=== PATIENT | female | born 1965 | race Two or more races ===

== ENCOUNTER 2017-03-05 12:48 | Emergency (ER) | payer MEDICAID ==
[~2017-03-05] VITALS: Ht 167.6 cm; Wt 81.2 kg
[2017-03-05 13:23] VITALS: BP 148/98
[2017-03-05] MEDS ORDERED: AUGMENTIN 875-1 EAC1 ORAL (13:49)
--- NOTE | 2017-03-05 13:50 | Emergency Room Report ---
History of Present Illness General Chief Complaint: Edema Source: Patient Present Illness HPI 51 y/o female c/o possible mass in left submandibilar region. States she noticed it this morning at 3am. Denies any pain and states its not bothering her but noticed it this morning and that it is large. States she had googled it and was worried its cancer. Denies any URI sxs, dental sxs, neck pain, taste changes, sinus congestion, f/c/n/v/d, abd pain, sore throat, or pain. States she is only here to figure out what this mass was. Allergies: Coded Allergies: No Known Allergies (Unverified , 03/05/17) Patient History Past Medical History: see triage record Past Surgical History: none Pertinent Family History: none Reviewed Nursing Documentation: PMH: Agreed, PSxH: Agreed Nursing Documentation-PMH Past Medical History: No Stated History Review of Systems All Other Systems: negative except mentioned in HPI Physical Exam Vital Signs Date Time Temp Pulse Resp B/P Pulse Ox O2 Delivery O2 Flow Rate FiO2 03/05/17 13:08 99.0 91 18 148/98 95 Room Air Sp02 EP Interpretation: reviewed, normal General Appearance: no apparent distress, alert, GCS 15, non-toxic Head: normocephalic, atraumatic Eyes: bilateral eye PERRL, bilateral eye normal inspection ENT: hearing grossly normal, normal pharynx, no angioedema, normal voice, uvula midline, other - 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 Left TM red and bulging Neck: full range of motion, supple/symm/no masses Respiratory: chest non-tender, lungs clear, normal breath sounds, speaking full sentences Cardiovascular #1: regular rate, rhythm, no edema Musculoskeletal: gait/station normal Neurologic: alert, oriented x3, responsive, motor strength/tone normal, sensory intact, speech normal Psychiatric: judgement/insight normal, memory normal, mood/affect normal, no suicidal/homicidal ideation Skin: normal color, no rash, warm/dry, well hydrated Lymphatic: no adenopathy Medical Decision Making PA Attestation Dr. Rudd is my supervising physician with whom patient management has been discussed with. Diagnostic Impression: Primary Impression: Lymph node enlargement Additional Impression: Left otitis media Qualified Codes: H65.112 - Acute and subacute allergic otitis media (mucoid) ( sanguinous) (serous), left ear ER Course Pt. presents to the ED c/o mass Ddx considered but are not limited to abscess, METAL FLOORING INSTALLER, infected salivary gland, URI , tumor Vital signs: are WNL, pt. 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 DISCHARGE: At this time pt. is stable for d/c to home. Will provide printed patient care instructions, and any necessary prescriptions. Care plan and follow up instructions have been discussed with the patient prior to discharge. Last Vital Signs Date Time Temp Pulse Resp B/P Pulse Ox O2 Delivery O2 Flow Rate FiO2 03/05/17 13:23 99.0 91 18 148/98 95 Room Air Status: unchanged Disposition: HOME, SELF-CARE Condition: Stable Scripts Amoxicillin/Potassium Clav 875-125* (AUGMENTIN 875-125 TABLET*) 1 Each Tablet 1 TAB ORAL TWICE A DAY, #20 TAB Prov: SYED PEREZ 03/05/17 Patient Instructions: Lymphadenopathy, Otitis Media, Adult Additional Instructions: Take medication as directed. If sxs worsen or don't improve, please return sooner. Go to the ER if you develop SOB, CP, Rash, photophobia, neck pain, throat swelling occur, go to the ER immediately. SYED PEREZ Mar 05, 2017 13:50
[2017-03-05 14:06] VITALS: BP 148/98
== END 2017-03-05 14:06 | disposition home or self-care (01) ==
LOC: EMR 13:10
DX: R59.9 Enlarged lymph nodes, unspecified (principal); H65.112 Acute and subacute allergic otitis media (mucoid) (sanguinous) (serous), left ear
CPT/HCPCS: 99283

== ENCOUNTER 2017-04-19 09:56 | Emergency (ER) | payer SELFPAY ==
[~2017-04-19] VITALS: Ht 170.2 cm; Wt 81.6 kg
[~2017-04-19 09:56] MED LIST: AUGMENTIN 875-1 EAC1 ORAL
[2017-04-19 10:45] VITALS: BP 149/101
[2017-04-19 10:52] LABS: APPEARANCE,URINE CLEAR; KETONES,URINE NEGATIVE (NEGATIVE); LEUKOCYTE ESTERASE ,URINE 2+ (NEGATIVE); NITRITE,URINE NEGATIVE (NEGATIVE); PH,URINE 6 (4.5-8.0); PROTEIN,URINE NEGATIVE (NEGATIVE); UROBILINOGEN,URINE NORMAL MG/DL (0.0-1.0)
[2017-04-19 11:07] LABS: BACTERIA,URINE FEW /HPF; SQUAMOUS EPITHELIAL CELL,UR MODERATE /LPF (NONE/OCC)
--- NOTE | 2017-04-19 14:51 | Emergency Room Report ---
History of Present Illness General Chief Complaint: General Complaint Source: Patient Present Illness HPI 51YOF with continued left submandibular lymph swelling for >1 month Was here mid-March for same Took Abx without improvement in symptoms Couldnt get to PMD because of insurance issues Denies fever/chills, weight loss, chest pain, SOB, abd pain Allergies: Coded Allergies: No Known Allergies (Unverified , 03/05/17) Patient History Past Medical History: none Past Surgical History: none Pertinent Family History: none Social History: Denies: alcohol use, drug use, smoking Now: No Immunizations: UTD Reviewed Nursing Documentation: PMH: Agreed, PSxH: Agreed Nursing Documentation-PMH Past Medical History: No Stated History Review of Systems All Other Systems: negative except mentioned in HPI Physical Exam Vital Signs Date Time Temp Pulse Resp B/P Pulse Ox O2 Delivery O2 Flow Rate FiO2 04/19/17 09:59 98.4 99 20 149/101 98 Room Air Sp02 EP Interpretation: reviewed, normal General Appearance: normal inspection, well appearing, no apparent distress, alert, GCS 15, non-toxic Head: normocephalic, atraumatic Eyes: bilateral eye EOMI, bilateral eye PERRL ENT: normal ENT inspection, hearing grossly normal, normal voice Neck: normal inspection, full range of motion, supple, no bony tend Respiratory: normal inspection, lungs clear, normal breath sounds, no respiratory distress, no retraction, no wheezing Cardiovascular #1: regular rate, rhythm, no edema Gastrointestinal: normal inspection, normal bowel sounds, non tender, soft, no guarding, no hernia Genitourinary: no CVA tenderness Musculoskeletal: normal inspection, back normal, normal range of motion, Jen' s Sign negative Neurologic: normal inspection, alert, oriented x3, responsive, 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 Afebrile. - Airway patent - No B signs - I ordered labs and CT neck soft tissue but patient concerned on how to pay for ED visit so left AMA. Signed AMA note is in the chart Patient is clinically sober, is free from from distracting injury, and has intact judgement and capacity to decide to leave against medical advice. Patient came in with 2 months left jaw lymph node. I'm concerned for possible abscess or malignancy. Patient verbalized understanding of my concern and my need to do lab analysis and CT imaging of neck but patient concerned for insurance and ability to pay. I explained to patient the risks of leaving AMA and patient informed that if they she leaves, she could get worse, she could become become critically ill, possibly become disabled or . Patient verbalized back to me understanding of these risks but still wants to leave. Last Vital Signs Date Time Temp Pulse Resp B/P Pulse Ox O2 Delivery O2 Flow Rate FiO2 04/19/17 10:45 98.4 99 20 149/101 98 Room Air Status: improved Disposition: AGAINST MEDICAL ADVICE Condition: Improved Referrals: NOT CHOSEN IPA/,REFERRING (PCP) Patient Instructions: Lymphadenopathy Additional Instructions: - Please return to ER for evaluation once you sort your insurance PHUONG CROWLEY M.D. Apr 19, 2017 14:51
== END 2017-04-19 10:50 | disposition left against medical advice (07) ==
LOC: EMR 10:47
DX: R59.0 Localized enlarged lymph nodes (principal)
CPT/HCPCS: 81003; 99282